=== PATIENT | male | born 1940 | race African-American/Black ===

== ENCOUNTER → 2017-08-22 | Outpatient (CLI) | payer MEDICARE, BC, OTHER ==
[~2017-08-22] MED LIST: AMLODIPINE BESY10 MG PO; IMDUR 30 MG TAB30 M1 PO; LIPITOR10 MG PO
== END ==
LOC: RAD 12:37
DX: J98.6 Disorders of diaphragm (principal); R91.8 Other nonspecific abnormal finding of lung field

== ENCOUNTER → 2017-08-23 | Outpatient (CLI) | payer MEDICARE, BC, OTHER | LOC: NUC 12:30 | DX: R06.02 Shortness of breath (principal) ==

== ENCOUNTER → 2019-05-21 | Outpatient (CLI) | payer MEDICARE, BC, OTHER ==
--- NOTE | 2019-05-25 17:20 | PFR/MVV ---
[facility] [address] [place] [address] PULMONARY FUNCTION MVV/REPORT Name: CAT OROSCO Room #: REG [facility]ITAL[facility] [id number] Admission: 05/21/19 Attend Phys: Physician not on staff Discharge: Date of : 40 Report #: [id number] THIS REPORT FOR: //name// >> SPIROMETRY: (BTPS) Height: 69 in cm Weight: 232 lbs kg Exam Date: 05/21/19 PRE-RX POST-RX PRED BEST %PRED BEST %PRED %CHG FVC LITERS . 4.02 . 2.14 . 3 . 2.39 . 60 . 12 FEV1 LITERS . 2.59 . 1.64 . 63 . 1.0 . 70 . 10 FEV1/FVC % . 67 . 76 . 14 . 75 . 13 . -1 EPS40-81% L/Sec . 2.2 . 1.40 . 62 . 1.46 . 65 . 5 PEF L/SEC . 7.75 . 4.58 . 59 . 5.40 . 70 . 18 FEF50/FIF50 UNITLESS . . 1.59 . . 1.76 . . 11 MVV L/Min . 114 . 17 . 15 f 1/Min . . 125 . >> LUNG VOLUMES: (BTPS) PRE-RX POST-RX PRED AVG %PRED AVG %PRED %CHG VC Liters . 1.02 . 2.28 . 57 . . . TLC Liters . 6.15 . 3.41 . 55 . . . RV Liters . 43 . 33 . 76 . . . RV/TLC % . 43 . 33 . 76 . . . FRC PL Liters . 3.17 . 1.40 . 44 . . . FRC N2 Liters . . . . . . ERV Liters . 1.38 . 0.27 . 20 . . . IC Liters . 2.76 . 1.90 . 69 . . . >> DIFFUSION: DLCO ml/Min/mmHg . 22.3 . 15.0 . 67 . . . DL Jasbir ml/Min/mmHg . 22.3 . 15.0 . 67 . . . DLCO/VA ml/Min/mmHg . 3.36 . 5.78 . 172 . . . VA Liters . . 2.60 . . . . COMMENTS: COMMENTS: >> RESISTANCE: [facility] [address] [place] [address] PULMONARY FUNCTION MVV/REPORT Name: CAT OROSCO Room #: REG RADHAMilagros Hendrickson#: [id number] Admission: 05/21/19 Attend Phys: Physician not on staff Discharge: Date of : 40 Report #: [id number] PRE-RX PRED AVG %PRED Raw Total cmH20/L/Sec . . 2.61 . Raw Insp cmH20/L/Sec . . 3.26 . Raw Exp cmH20/L/Sec . . 4.94 . Raw cmH20/L/Sec . 1.47 . 1.5 . 106 Gaw L/Sec/cmH20 . 0.760 . .0644 . 85 sRaw cmH20 Sec . 4.64 . 3.69 . 79 sGaw l/cmH20 Sec . 0.216 . 0.272 . 126 Vtq Liters . . 2.37 . # = OUTSIDE 95% CONFIDENCE INTERVAL CALIBRATION: PRED: 3.00 ACTUAL: EXP 3.01 INSP 3.02 [facility] [id number] [facility] [place]-05 [id number] >> INTERPRETATION/IMPRESSION: CC: KATERINE PENNINGTON Physician staff Poli Blas MD DATE OF SERVICE: 05/22/2019 PULMONARY FUNCTION TEST FINDINGS: Spirometric examination revealed mild to moderately reduced flows. There was significant bronchodilator response. Lung volumes are mildly reduced. Diffusion capacity is mildly reduced, but normal when corrected for alveolar volume. Flow volume loop is consistent with restrictive pattern. IMPRESSION: [id number] restrictive ventilatory defect with reversible airways. Clinical correlation is recommended. <ELECTRONICALLY SIGNED> By: Best Barnes MD 05/25/19 1720 Best Barnes MD /nt
== END ==
LOC: PUL 09:28
DX: D86.9 Sarcoidosis, unspecified (principal)

== ENCOUNTER → 2019-08-10 | Outpatient (CLI) | payer MEDICARE, OTHER | LOC: SJCVCIMAG 09:35 | DX: I45.10 Unspecified right bundle-branch block (principal); R94.31 Abnormal electrocardiogram [ECG] [EKG]; R00.1 Bradycardia, unspecified; I25.10 Atherosclerotic heart disease of native coronary artery without angina pectoris; I10 Essential (primary) hypertension; E11.9 Type 2 diabetes mellitus without complications; E78.5 Hyperlipidemia, unspecified; Z79.899 Other long term (current) drug therapy; Z79.84 Long term (current) use of oral hypoglycemic drugs; Z85.46 Personal history of malignant neoplasm of prostate ==

== ENCOUNTER → 2019-09-21 | Outpatient (CLI) | payer MEDICARE, OTHER | LOC: SJCVC 08:42 | DX: I25.10 Atherosclerotic heart disease of native coronary artery without angina pectoris (principal); I10 Essential (primary) hypertension; E78.5 Hyperlipidemia, unspecified; J42 Unspecified chronic bronchitis; K21.9 Gastro-esophageal reflux disease without esophagitis; E11.9 Type 2 diabetes mellitus without complications; Z79.899 Other long term (current) drug therapy ==

== ENCOUNTER → 2019-12-23 | Outpatient (CLI) | payer MEDICARE | LOC: RAD 12:21 | DX: R06.02 Shortness of breath (principal) ==

== ENCOUNTER → 2020-03-31 | Outpatient (CLI) | payer MEDICARE | LOC: SJCVCIMAG 08:54 | PROVIDERS: ATTEND Internal Medicine | DX: I11.9 Hypertensive heart disease without heart failure (principal); I45.10 Unspecified right bundle-branch block; I49.3 Ventricular premature depolarization; I25.118 Atherosclerotic heart disease of native coronary artery with other forms of angina pectoris; E78.5 Hyperlipidemia, unspecified; J44.9 Chronic obstructive pulmonary disease, unspecified; Z79.899 Other long term (current) drug therapy ==